=== PATIENT | male | born 1950 | race Caucasian/White ===

== ENCOUNTER 2016-08-27 23:52 | Emergency (ER) | payer MEDICARE, OTHER ==
[2016-08-28 01:03] LABS: Prothrombin Time (Patient) 16.6 Seconds (9.4-11.4)
[2016-08-28 01:04] LABS: INR 1.6 INR (0.90-1.10)
[2016-08-28] MEDS ORDERED: ENOXAPARIN SODIUM 30 MG/0.3 ML SYRG SC ONE ×2 (01:59→02:33)
--- NOTE | 2016-08-28 02:06 | ERNOTE ---
Lower Extremity HPI - Narrative Date of Service: 08/28/16 - General Lower Extremities Pain: leg: right Time Seen by Provider: 08/28/16 01:00 Source: patient Exam Limitations: no limitations - Immun/Allergies/Home Medications Immunizations: IMMUNIZATION HX Immunizations Up to Date Yes History of Influenza Vaccine Yes Hx Pneumococcal Vaccination No Allergies/Adverse Reactions: Allergies Allergy/AdvReac Type Severity Reaction Status Date / Time No Known Allergies Allergy Unverified 03/19/15 11:18 Home Medications: HOME MEDICATIONS Albuterol Sulfate 2.5 mg IH QID 03/19/15 [Last Taken Unknown] Budesonide/Formoterol Fumarate [Symbicort 160-4.5 Mcg Inhaler] 2 puff IH BID [Last Taken Unknown] Hydrochlorothiazide [Hydrodiuril] 25 mg PO DAILY 03/19/15 [Last Taken Unknown] Losartan/Hydrochlorothiazide [Losartan-Hctz 50-12.5 mg Tab] 1 each PO DAILY [Last Taken Unknown] Metoprolol Succinate [Toprol Xl] 100 mg PO BID 03/19/15 [Last Taken Unknown] amLODIPine BESYLATE [Norvasc] 10 mg PO DAILY 03/19/15 [Last Taken Unknown] - History of Present Illness Narrative: Noticed that the right leg became swollen today. No complaints of pain, fevers, chills, or numbness in the right leg. s/p right hip surgery last Sunday and has been taking Coumadin 3 mg po qd since last Sunday. PMH:peripheral vascular disease PSH:stents in lower extremities, right hip Location of Incident: home Method of Injury: Reports: other - none Modifying Factors - (Worsens): Reports: other - none Associated Symptoms: Reports: none Other Injuries: Reports: none Prior Treament: Reports: treated by physician Review of Systems - Review of Systems Constitutional: Present: no symptoms reported EYE: Present: no symptoms reported ENT: Present: no symptoms reported Respiratory: Present: no symptoms reported Cardiology: Present: no symptoms reported Gastrointestinal/Abdominal: Present: no symptoms reported Genitourinary: Present: no symptoms reported Musculoskeletal: Present: See HPI Skin: Present: no symptoms reported Neurological: Present: no symptoms reported Endocrine: Present: no symptoms reported Hematologic/Lymphatic: Present: no symptoms reported - Patient's Past Medical History Patient History - Medical: Other Patient History - Cardiac/Respiratory: No pertinent hx Patient History - Cancer: No Hx of Cancer Patient History - Surgical Procedures: Cataracts, Total Hip Replacement - Social History Living Situations: home Smoking Status: Current every day smoker Have you smoked in the past 12 months: Yes Do you dip or chew tobacco: No Patient requests Smoking Cessation Consult: No Initiate information on Smoking Cessation: No Alcohol Use: sober - Immunizations Immunizations Up to Date: Yes Hx Pneumococcal Vaccination: No History of Influenza Vaccine: Yes Physical Exam - Physical Exam General Appearance: Present: no apparent distress Eye Exam: Normal inspection: bilateral Ears, Nose, Throat: Present: normal ENT inspection Neck: Present: normal inspection Respiratory: Present: no respiratory distress Cardiovascular/Chest: Present: regular rate, rhythm Gastrointestinal/Abdominal: Present: nontender Back Exam: Present: normal inspection Extremity Exam: Present: non-tender, other - Right calf is swollen and non tender. NV intact distally.No increased warmth or redness. 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 - Progress/Reassessment Chief Complaint: Lower Extremity Pain/ Injury Progress:: Unchanged Progress Note-Subjective: 08/28/16 02:07 The INR was subtherapeutic, therefore a Lovenox bridge was given- 30 mg sc. 08/28/16 02:34 Although there was no evidence of a DVT there is a high suspicion of one that is causing the swelling. Departure Clinical Impression: Right leg swelling - Departure Disposition: Home self-care Condition: Good Instructions: Venous Thromboembolism Print Language: Italian Additional Instructions: Follow up with your orthopedic surgeon today. Increase the coumadin to 5 mg by mouth at night. You will need to get your INR checked in 3 days unless otherwise indicated by your surgeon.
[2016-08-28 03:10] VITALS: BP 122/61
== END 2016-08-28 02:45 | disposition home or self-care (01) ==
LOC: ER 23:52
DX: R22.41 Localized swelling, mass and lump, right lower limb (principal); F17.210 Nicotine dependence, cigarettes, uncomplicated; Z96.641 Presence of right artificial hip joint